=== PATIENT | female | born 1990 | race Two or more races ===

== ENCOUNTER 2021-05-20 15:35 | Observation (INO) | payer SELFPAY ==
[~2021-05-20] VITALS: Ht 162 cm; Wt 86.2 kg
[2021-05-20 16:46] VITALS: BP 128/77
[2021-05-20] MEDS ORDERED: TERBUTALINE 1 MG/ML VIAL SUBQ SCH (17:40)
[2021-05-20] MEDS ORDERED: TERBUTALINE 1 MG/ML VIAL SUBQ ONE (17:44)
== END 2021-05-20 18:40 | disposition home or self-care (01) ==
LOC: MLD 15:35
PROVIDERS: ADMIT Obstetrics & Gynecology; ATTEND Obstetrics & Gynecology
DX: O26.893 Other specified pregnancy related conditions, third trimester (principal); R10.9 Unspecified abdominal pain; Z3A.31 31 weeks gestation of pregnancy
CPT/HCPCS: 59025; 76805; 81000; 96372; G0378; G0379; J3105; Q0092

== ENCOUNTER 2021-06-23 04:25 | Inpatient (IN) | payer MEDICAID, SELFPAY ==
[~2021-06-23] VITALS: Ht 165.1 cm; Wt 90.7 kg
[2021-06-23] MEDS ORDERED: PROMETHAZINE 25 MG/ML VIAL IVP PRN (04:45)
[2021-06-23] MEDS ORDERED: MISOPROSTOL 200 MCG TAB VG ONE (04:45)
[2021-06-23] MEDS ORDERED: CARBOPROST 250 MCG/ML AMP IM PRN (04:45)
[2021-06-23] MEDS ORDERED: METHYLERGONOVINE 0.2 MG/ML AMP IM PRN (04:45)
[2021-06-23] MEDS ORDERED: NALBUPHINE 10 MG/ML AMP IVP PRN (04:45)
[2021-06-23] MEDS ORDERED: MISOPROSTOL 25 MCG TAB VG SCH (05:30)
[2021-06-23] MEDS: LACTATED RINGERS 1,000 ML IV SCH ×2 (05:36→07:51)
[2021-06-23 05:51] LABS: BILIRUBIN,URINE NEGATIVE (NEGATIVE); BLOOD, URINE 2+ (NEGATIVE); COLOR,URINE YELLOW (YELLOW); LEUKOCYTE ESTERASE ,URINE NEGATIVE (NEGATIVE); NITRITE, URINE NEGATIVE (NEGATIVE); UGLUCOSE 1+ (NEGATIVE)
[2021-06-23 05:58] LABS: APPEARANCE,URINE HAZY (CLEAR)
[2021-06-23 06:01] LABS: BASOPHILS % (AUTO) 0.2 % (0.0-2.0); EOSINOPHILS # (AUTO) 0.1 K/uL (0-0.4); EOSINOPHILS % (AUTO) 0.8 % (0.0-4.0); HEMATOCRIT 36.2 % (36-48); HEMOGLOBIN 12.1 g/dL (12.0-16.0); LYMPHOCYTES # (AUTO) 2.6 K/uL (2.5-16.5); LYMPHOCYTES % (AUTO) 23.5 % (20.5-51.1); MEAN CORPUSCULAR HEMOGLOBIN 30 pg (27-31); MEAN CORPUSCULAR HGB CONC 33 g/dL (33-37); MEAN CORPUSCULAR VOLUME 89.8 fL (80-94); MONOCYTES # (AUTO) 0.8 K/uL (0.8-1.0); MONOCYTES % (AUTO) 7.2 % (1.7-9.3); NEUTROPHILS # (AUTO) 7.6 K/uL (1.8-7.7); NEUTROPHILS % (AUTO) 68.3 % (42.2-75.2); PLATELET COUNT (AUTO) 205 K/uL (140-450); RED BLOOD CELL COUNT(AUTO) 4.03 MIL/uL (4.20-5.40); RED CELL DISTRIBUTION WIDTH 14.4 % (11.6-13.7); WHITE BLOOD COUNT (AUTO) 11.2 K/uL (4.8-10.8)
[2021-06-23] MEDS ORDERED: ASCO500T95 PO (06:06)
[2021-06-23] MEDS ORDERED: PNV91TAB8 PO (06:06)
[2021-06-23] MEDS ORDERED: ZINC50TA76 PO (06:06)
[2021-06-23 06:13] LABS: ALBUMIN 2.6 g/dL (3.4-5.0); ANION GAP 15.7 (8-16); CARBON DIOXIDE 20.5 mmol/L (21-32); CREATININE 0.6 mg/dL (0.6-1.3); POTASSIUM 4.2 mmol/L (3.5-5.1); TOTAL BILIRUBIN 0.2 mg/dL (0.0-1.0)
[2021-06-23 06:17] LABS: RBC,URINE 11-20 (MOD) /HPF (0-5); WBC,URINE 0-5 /HPF (0-5)
[2021-06-23 06:18] LABS: HYALINE CASTS, URINE 0-10 /LPF (None Seen); URINE AMORPHOUS URATE 1+ /HPF (None Seen)
--- NOTE | 2021-06-23 07:10 | NUR ---
PATIENT HAS BEEN SCREENED AND CATEGORIZED LOW NUTRITION RISK. PATIENT WILL BE SEEN WITHIN 7 DAYS OF ADMISSION. 06/30/21 ANSON BALDERRAMA MS, RDN
[2021-06-23] MEDS ORDERED: OXYTOCIN 20 UNITS in LACTATED RINGERS 1,000 ML IV SCH (07:20)
[2021-06-23] MEDS ORDERED: ROPIVACAINE 0.2%/NS PREMIX 200 ML EPI ONE (08:10)
[2021-06-23] MEDS ORDERED: ROPIVACAINE 0.2%/NS PREMIX 100 ML EPI SCH (08:35)
[2021-06-23] MEDS ORDERED: OXYTOCIN 20 UNITS/LR PREMIX 1,000 ML IV ONE (10:04)
[2021-06-23] MEDS ORDERED: MISOPROSTOL 200 MCG TAB ONE (13:33)
[2021-06-23] MEDS ORDERED: MISOPROSTOL 100 MCG TAB PO SCH (13:35)
[2021-06-23] MEDS ORDERED: SIMETHICONE 80 MG TAB.CHEW PO PRN (13:40)
[2021-06-23] MEDS ORDERED: DOCUSATE SODIUM 100 MG GELCAP PO PRN (13:40)
[2021-06-23] MEDS ORDERED: OXYTOCIN 10 UNITS/ML VIAL IM PRN (13:40)
[2021-06-23] MEDS ORDERED: MEASLES, MUMPS, AND RUBELLA 1 VIAL SQVAC ONE (13:40)
[2021-06-23] MEDS ORDERED: BENZOCAINE/MENTHOL 20%-0.5% 60 GM CAN TP PRN (13:40)
[2021-06-23] MEDS ORDERED: bisacodyL 5 MG TABEC PO PRN (13:40)
[2021-06-23] MEDS ORDERED: IBUPROFEN 600 MG TAB PO PRN (13:40)
[2021-06-23] MEDS ORDERED: MISOPROSTOL 200 MCG TAB RC SCH (14:15)
[2021-06-23] MEDS: IBUPROFEN 800 MG TAB PO PRN ×2 (14:51→19:46)
[2021-06-24] MEDS: IBUPROFEN 800 MG TAB PO PRN (07:44)
[2021-06-24] MEDS ORDERED: MEASLES, MUMPS, AND RUBELLA 1 VIAL SQVAC ONE (08:00)
[2021-06-24] MEDS ORDERED: MEASLES, MUMPS, AND RUBELLA 1 VIAL SQVAC SCH (08:35)
[2021-06-24 10:15] LABS: HEMATOCRIT 26.5 % (36-48)
[2021-06-25] MEDS: IBUPROFEN 800 MG TAB PO PRN (09:39)
== END 2021-06-25 14:30 | disposition home or self-care (01) | DRG 560 ==
LOC: MLD 04:25 → MFCC 16:05
PROVIDERS: ADMIT Obstetrics & Gynecology; ATTEND Obstetrics & Gynecology
PROC: 10E0XZZ Delivery of Products of Conception, External Approach (ICD-10-PCS; principal; 2021-06-23)
PROC: 0KQM0ZZ Repair Perineum Muscle, Open Approach (ICD-10-PCS; 2021-06-23)
PROC: 3E0R3BZ Introduction of Anesthetic Agent into Spinal Canal, Percutaneous Approach (ICD-10-PCS; 2021-06-23)
PROC: 00HU33Z Insertion of Infusion Device into Spinal Canal, Percutaneous Approach (ICD-10-PCS; 2021-06-23)
PROC: 3E0P7GC Introduction of Other Therapeutic Substance into Female Reproductive, Via Natural or Artificial Opening (ICD-10-PCS; 2021-06-23)
DX: O69.81X0 Labor and delivery complicated by cord around neck, without compression, not applicable or unspecified (principal); Z37.0 Single live birth; O72.1 Other immediate postpartum hemorrhage; O99.214 Obesity complicating childbirth; Z20.822 Contact with and (suspected) exposure to COVID-19; O42.92 Full-term premature rupture of membranes, unspecified as to length of time between rupture and onset of labor; O70.1 Second degree perineal laceration during delivery; Z3A.38 38 weeks gestation of pregnancy
CPT/HCPCS: 36415; 51702; 59200; 59409; 80053; 81001; 85018; 85025; 86592; 86886; 86900; 86901; 87340; 90707; J2300; J2590; J2795; J3490